=== PATIENT | male | born 1985 | race African-American/Black ===

== ENCOUNTER 2016-07-10 21:30 | Emergency (ER) | payer SELFPAY ==
[~2016-07-10] VITALS: Ht 170.2 cm; Wt 54.4 kg
[2016-07-10 22:47] VITALS: BP 136/94
[2016-07-10 23:32] LABS: Basophils # (auto) 0 uL; Basophils % (auto) 0.2 % (0.0-2.0); Eosinophils # (auto) 0.1 uL; Eosinophils % (auto) 1.6 % (0.0-7.0); Hematocrit 40.9 % (41.0-53.0); Hemoglobin 13.6 g/dL (13.5-17.5); Lymphocytes # (auto) 2.6 uL; Mean Corpuscular Hemoglobin 33.1 pg (28.0-32.0); Mean Corpuscular Hgb Conc. 33.2 g/dL (32.0-36.0); Mean Corpuscular Volume 99.6 fL (80.0-100.0); Monocytes # (auto) 0.8 uL; Monocytes % (auto) 10.1 % (0.0-12.0); Neutrophils # (auto) 4.4 uL; Neutrophils % (auto) 55.1 % (37.0-80.0); Platelet Count (auto) 481 10^3/uL (140-450); Red Cell Distribution Width 12.8 % (11.6-16.0); White Blood Cell 7.9 10^3/uL (4.4-10.8)
[2016-07-10 23:43] LABS: Albumin 3.6 g/dL (3.4-5.0); Anion Gap 10 (5-15); Blood Urea Nitrogen 9 mg/dL (7-18); Calcium 8.7 mg/dL (8.5-10.1); Carbon Dioxide 29 mmol/L (21-32); Chloride 103 mmol/L (98-107); Glucose 86 mg/dL (74-106); Potassium 3.6 mmol/L (3.5-5.1); Sodium 142 mmol/L (136-145)
[2016-07-10 23:45] LABS: Aspartate Aminotransferase 17 U/L (15-37); BUN/Creatinine Ratio 10.8; GFR African American 137 mL/min; GFR Non-African American 113 mL/min
[2016-07-10 23:50] LABS: Alkaline Phosphatase 67 U/L (45-117); Bilirubin, Total 0.3 mg/dL (0.2-1.0); Total Protein 7.7 g/dL (6.4-8.2)
== END 2016-07-11 00:55 | disposition left against medical advice (07) ==
LOC: ER 21:30
DX: R07.9 Chest pain, unspecified (principal); Z53.21 Procedure and treatment not carried out due to patient leaving prior to being seen by health care provider
CPT/HCPCS: 36415; 71010; 80053; 84484; 85025

== ENCOUNTER 2019-07-27 00:51 | Emergency (ER) | payer MEDICAID ==
[~2019-07-27] VITALS: Ht 170.2 cm; Wt 52.6 kg
[2019-07-27 01:30] VITALS: BP 127/87
== END 2019-07-27 03:34 | disposition left against medical advice (07) ==
LOC: ER 00:51
DX: S41.112A Laceration without foreign body of left upper arm, initial encounter (principal); Z53.21 Procedure and treatment not carried out due to patient leaving prior to being seen by health care provider; V49.9XXA Car occupant (driver) (passenger) injured in unspecified traffic accident, initial encounter; Y93.89 Activity, other specified; Y92.89 Other specified places as the place of occurrence of the external cause; Y99.8 Other external cause status

== ENCOUNTER 2023-07-05 13:07 | Emergency (ER) | payer MEDICAID ==
[~2023-07-05] VITALS: Ht 170.2 cm; Wt 51.8 kg
[2023-07-05 14:51] VITALS: BP 120/77; PULSE 63; RESP 16; TEMP 98.2; O2SAT 99
== END 2023-07-05 15:35 | disposition home or self-care (01) ==
LOC: ER 13:07
DX: S76.011A Strain of muscle, fascia and tendon of right hip, initial encounter (principal); S86.811A Strain of other muscle(s) and tendon(s) at lower leg level, right leg, initial encounter; Z88.8 Allergy status to other drugs, medicaments and biological substances; W18.39XA Other fall on same level, initial encounter; Y93.89 Activity, other specified; Y92.89 Other specified places as the place of occurrence of the external cause; Y99.8 Other external cause status
CPT/HCPCS: 73502; 73590

== ENCOUNTER 2023-07-27 12:20 | Emergency (ER) | payer MEDICAID ==
[~2023-07-27] VITALS: Ht 170.2 cm; Wt 52.7 kg
[2023-07-27 13:32] VITALS: BP 121/72; PULSE 74; RESP 17; TEMP 98.8; O2SAT 98
[2023-07-27] MEDS: methylPREDNISolone SOD SUCC 125 MG/2 ML VL IM ONE (14:24)
[2023-07-27] MEDS: KETOROLAC TROMETH 30 MG/ML 1ML VIAL IM ONE (14:24)
[2023-07-27] MEDS ORDERED: IBUP1TAB5 PO (15:05)
[2023-07-27] MEDS ORDERED: LIDO4PAD EX (15:05)
== END 2023-07-27 15:07 | disposition home or self-care (01) ==
LOC: ER 12:20
DX: S86.911A Strain of unspecified muscle(s) and tendon(s) at lower leg level, right leg, initial encounter (principal); M25.551 Pain in right hip; F12.10 Cannabis abuse, uncomplicated; Z88.5 Allergy status to narcotic agent; Z88.6 Allergy status to analgesic agent; W22.8XXA Striking against or struck by other objects, initial encounter; Y93.89 Activity, other specified; Y92.89 Other specified places as the place of occurrence of the external cause; Y99.8 Other external cause status
CPT/HCPCS: 73700; 93971; 96372; 99285; J1885; J2919

== ENCOUNTER 2024-09-15 12:20 | Emergency (ER) | payer MEDICAID ==
[~2024-09-15] VITALS: Ht 170.2 cm; Wt 120.0 kg
[~2024-09-15 12:20] MED LIST: IBUP1TAB5 PO; LIDO4PAD EX
--- NOTE | 2024-09-15 13:18 | ED.PDOC ---
Back pain HPI HPI Comments THIS IS A 39 YEAR OLD MALE PRESENTING TO THE ED WITH CHIEF COMPLAINT OF BACK PAIN. PATIENT REPORTS THAT HE HAS BEEN EXPERIENCING CHRONIC LOWER BACK AND NECK PAIN FOR THE PAST FEW MONTHS, BUT HAS WORSENED OVER THE PAST FEW DAYS. PATIENT RELAYS THAT HIS PAIN RADIATES DOWN HIS RIGHT HIP AND HIS LEFT ARM HAS ASSOCIATED TINGLING SENSATION. PT IS ABLE TO MOVE HIS NECK AND LOWER BACK WITH NORMAL ROM. PATIENT DENIES ANY CHEST PAIN, SOB, FALL, INJURY, OR SYNCOPE. NO FURTHER SYMPTOMS OR CONCERNS AT THIS TIME.PT TAKES NORCO FOR HIS NECK AND LOWER BACK PAIN. Chief Complaint: Back Pain Time Seen by MD: 13:16 Primary Care Provider: Dr. Piña Reviewed Notes: Nurses Notes, Medications, Allergies Allergies: Coded Allergies: Cyclobenzaprine (Verified Allergy, Unknown, 07/10/16) Tramadol (Verified Allergy, Unknown, 07/10/16) Home Meds Active Scripts Prednisone (Prednisone) 20 Mg Tab, 40 MG PO DAILY, #20 TAB Prov:BRENDA CRAIG 09/15/24 Lidocaine (Lidocaine Maximum Strengt) 4 % Pad, 4 % EX DAILY for 15 Days, #15 PAD Prov:SKIP WEBB NP 07/27/23 Ibuprofen Micronized (Ibuprofen) 600 Mg Tab, 600 MG PO Q6HPRN PRN for 5 Days, #20 TAB Prov:SKIP WEBB NP 07/27/23 Information Source: Patient Mode of Arrival: Ambulatory Timing: Months Duration: Since onset Location of Back pain: (B) Lower back, Other (LEFT UPPER EXTREMITY. ) Radiates to: Posterior: (R) Buttocks, (B) Foot, (R) Thigh Radiates to: Lateral: (R) Buttocks, (R) Thigh Severity: Moderate Prehospital treatment: None Quality: Aching Onset: Spontaneous History of: Chronic Back Pain Modifying Factors: Movement, Nothing Associated signs and symptoms: None Past Medical History PAST MEDICAL HISTORY: Depression Past Medical History (Other): CHRONIC NECK AND LOW BACK PAIN Surgical History: Denies all surgeries Family History Family History: Reviewed,noncontributory to illness Social History Smoker: Non-Smoker Alcohol: Occasionally Drugs: Marijuana Lives In: Home Constitutional: denies: chills, diaphoresis, fatigue, fever, malaise, sweats, weakness, others EENTM: denies: blurred vision, double vision, ear bleeding, ear discharge, ear drainage, ear pain, ear ringing, eye pain, eye redness, hearing loss, mouth pain, mouth swelling, nasal discharge, nose bleeding, nose congestion, nose pain, photophobia, tearing, throat pain, throat swelling, voice changes, others Respiratory: denies: cough, hemoptysis, orthopnea, SOB at rest, shortness of breath, SOB with excertion, stridor, wheezing, others Gastrointestinal: denies: abdomen distended, abdominal pain, blood streaked bowels, constipated, diarrhea, dysphagia, difficulty swallowing, hematemesis, melena, nausea, poor appetite, poor fluid intake, rectal bleeding, rectal pain, vomiting, others Genitourinary: denies: burning, dysuria, flank pain, frequency, hematuria, incontinence, penile discharge, penile sore, pain, testicle pain, testicle swelling, urgency, others Neurological: denies: dizziness, fainting, headache, left sided numbness, left sided weakness, numbness, paresthesia, pre-existing deficit, right sided numbness, right sided weakness, seizure, speech problems, tingling, tremors, weakness, others Musculoskeletal: reports: back pain, muscle pain, neck pain, others (RT HIP PAIN, LT SHOULDER KIT); denies: gout, joint pain, joint swelling, muscle stiffness Integumetry: denies: bruises, change in color, change in hair/nails, dryness, laceration, lesions, lumps, rash, wounds, others Hematologic/Lymphatic: denies: anemia, blood clots, easy bleeding, easy bruising, swollen glands, others Endocrine: denies: excessive hunger, excessive sweating, excessive thirst, excessive urination, flushing, intolerance to cold, intolerance to heat, unexplained weight gain, unexplained weight loss, others Psychiatric: denies: anxiety, bipolar disorder, depression, hopeless, panic disorder, schizophrenia, sleepless, suicidal, others All Other Systems: Reviewed and Negative Physical Exam General Appearance: No Apparent Distress, Normal HEENT: Normal ENT Inspection, PERRL/EOMI, Pharynx Normal, TMs Normal Neck: Full Range of Motion, Normal Inspection, Supple, Tender Lateral (MUSCLE SPASM ON POSTERIOR NECK, NO BONY TENDERNESS AND SWELLING. ) Respiratory: Chest Non-Tender, Lungs Clear, No Accessory Muscle Use, No Respiratory Distress, Normal Breath Sounds Cardiovascular: No Edema, No JVD, No Murmur, No Gallop, Normal Peripheral Pulses, Regular Rate/Rhythm Breast Exam: Deferred Gastrointestinal: No Organomegaly, Non Tender, No Pulsatile Mass, Normal Bowel Sounds, Soft Genitalia: Deferred Pelvic: Deferred Rectal: Deferred Extremities: No calf tenderness, Normal capillary refill, Normal inspection, Normal range of motion, Non-tender, No pedal edema Musculoskeletal : Location: Bilateral Extremity Location: Back Apperance: Tenderness (AND MUSCLE SPASM ON LOWER BACK, NO BONY TENDERNESS, SWELLING AND DEFORMITY. ) Neurologic: Alert, planting material remover II-XII nml as Tested, No Motor Deficits, Normal Affect, Normal Mood, No Sensory Deficits Cerebellar Function: Normal Reflexes: Normal Skin: Dry, Normal Color, Warm Peripheral Pulses: 2+ carotid (R), 2+ carotid (L) Lymphatic: No Adenopathy Was a procedure done? Was a procedure done?: No Back Pain Differential Dx Differential Diagnosis: Musculoskeletal Pain, Other (DDD OF NECK ND LOW BACK, CHRONIC PAIN EXACERBATION. ) X-Ray, Labs, Meds, VS Vital Signs Date Time Temp Pulse Resp B/P (MAP) Pulse Ox O2 Delivery O2 Flow Rate FiO2 09/15/24 12:22 98.3 77 16 130/90 97 98.3 Current Medications Medications (Trade) Dose Ordered Sig/Susanna Route Start Time Stop Time Status Last Admin Ketorolac Tromethamine (Toradol Injection) 60 mg ONCE ONCE IM 09/15/24 13:45 09/15/24 13:46 DC 09/15/24 14:11 [place] [address] Ph: [phone] DIAGNOSTIC IMAGING Diagnostic Imaging Report : [id number] Signed PATIENT: NIGEL MARTINACCT: [id number] UNIT: [id number] : 1985 LOC: ER ROOM / BED: / AGE / SEX: 39 / M ADM STATUS: REG ER SERVICE 1312 ORDERING PHYSICIAN: BRENDA CRAIG PROCEDURE(s): LUMB2 - LUMBAR SPINE 3 VIEW REASON: LOW BACK PAIN TO RIGHT LOW LEG ORDER NUMBER(s): [id number], ACCESSION NUMBER(s): [id number] XY LUMBAR SPINE 3 VIEW, HISTORY: LOW BACK PAIN TO RIGHT LOW LEG COMPARISON: None TECHNICAL DATA: Frontal and lateral views were obtained of the lumbar spine . FINDINGS: There are 5 lumbar type vertebral bodies. Lumbar curvature is within normal limits. Mild L5-S1 retrolisthesis. Vertebral body heights are maintained. Disk heights are narrowed. The facet joints appear degenerative. The sacroiliac joints are symmetric. Paraspinal soft tissues are within normal limits. IMPRESSION: Mild L5-S1 retrolisthesis. No acute fracture or dislocation of the lumbar spine. ATED BY: HEMA ANGEL MD DICTATED DATE/TIME: 09/15/24 135 SIGNED BY: HEMA ANGEL MD SIGNED DATE/TIME: 09/15/24 135 CC: [place] [address] Ph: [phone] DIAGNOSTIC IMAGING Diagnostic Imaging Report : [id number] Signed PATIENT: NIGEL MARTINACCT: [id number] UNIT: [id number] : 1985 LOC: ER ROOM / BED: / AGE / SEX: 39 / M ADM STATUS: REG ER SERVICE 1312 ORDERING PHYSICIAN: BRENDA CRAIG PROCEDURE(s): CERV2 - CERVICAL SPINE 3V REASON: NECK PAIN TO LEFT ARM ORDER NUMBER(s): [id number], ACCESSION NUMBER(s): [id number] INDICATION: NECK PAIN TO LEFT ARM TECHNIQUE: 3 views of the cervical spine were obtained. COMPARISON: None FINDINGS: The cervical spine is visualized from C1-C7. There is loss of the normal cervical lordosis which can be positional. No fractures or subluxations are identified. Alignment appears unremarkable. Prevertebral soft tissues are within normal limits. IMPRESSION: No acute fracture or subluxation ATED BY: LEO YAN MD DICTATED DATE/TIME: 09/15/24 135 SIGNED BY: LEO YAN MD SIGNED DATE/TIME: 09/15/24 135 CC: X-Ray, Labs, Meds, VS Comment EXTERNAL MEDICAL RECORDS REVIEWED: [NONE] INDEPENDENT HISTORIANS: [NONE] SOCIAL DETERMINANTS OF HEALTH: [NONE] LABS ORDERED: NONE REVIEWED AND INTERPRETED RESULTS: L-SPINE XR, C-SPINE XR, DEGENERATIVE CHANGES TO C5-C6. PENDING OFFICIAL RADIOLOGIST READING. IMAGING ORDERED: L-SPINE XR, C-SPINE XR: DDD TREATMENTS ORDERED: NONE PROCEDURES PERFORMED: NONE CRITICAL CARE TIME: NONE I HAVE DISCUSSED THE PATIENT WITH THE ATTENDING PHYSICIAN DR. LUNDBERG AND HE AGREES WITH THE PATIENT'S PLAN OF CARE AND DISPOSITION. BASED ON HISTORY OF PRESENT ILLNESS, AND PHYSICAL EXAM, PATIENT WILL BE DISCHARGED HOME. DISCUSSED PLAN FOR DISCHARGE HOME WITH RX PREDNISONE. MEDICATION WARNINGS GIVEN. SHARED DECISION MAKING: DISCUSSED WITH PATIENT THAT THEIR WORKUP WAS NORMAL. PATIENT INSTRUCTED TO FOLLOW UP WITH PRIMARY CARE PROVIDER IN 1-2 DAYS FOR RE- EVALUATION OF SYMPTOMS. PATIENT VERBALIZES UNDERSTANDING TO RETURN TO ED FOR NEW OR WORSENING SYMPTOMS OR IF FOLLOW UP WITH PCP CANNOT BE OBTAINED. PATIENT FEELS COMFORTABLE GOING HOME AT THIS TIME. ALL QUESTIONS ADDRESSED AT TIME OF DISCHARGE. Time of 1ST Reevaluation: 14:24 Reevaluation 1ST: Unchanged Patient Education/Counseling: Diagnosis, Treatment, Need For Follow Up Family Education/Counseling: Diagnosis, Treatment, No Family Present Medical Screening: No EMC Exist At This Time SEPSIS Sepsis Screen Date sepsis recognized/suspect: Sep 15, 2024 Time Sepsis recognized/suspect: 1223 Recent Procedure: No On Antibiotic Therapy: No Respiratory Rate >20: No Heart Rate >90: No Temp<36 C (96.8 F) or >38.3 C: No SBP <90 or MAP <65 mmHG: No New Acute Mental Status Change: No Is the patient on CPAP, BIPAP,: No Physician Orders Cervical Spine 3v (09/15/24 13:12) Lumbar Spine 3 View (09/15/24 13:12) Vital Signs Date Time Temp Pulse Resp B/P (MAP) Pulse Ox O2 Delivery O2 Flow Rate FiO2 09/15/24 12:22 98.3 77 16 130/90 97 98.3 Medications Medications Dose Ordered Sig/Susanna Route Start Time Stop Time Status Last Admin Dose Admin Ketorolac Tromethamine 60 mg ONCE ONCE IM 09/15/24 13:45 09/15/24 13:46 DC 09/15/24 14:11 Departure 1 Departure Time of Disposition: 14:24 Impression: Primary Impression: DDD (degenerative disc disease), cervical Additional Impressions: DDD (degenerative disc disease), lumbar Qualified Codes: M51.362 - Other intervertebral disc degeneration, lumbar region with discogenic back pain and lower extremity pain Radiculopathy Qualified Codes: M54.17 - Radiculopathy, lumbosacral region Disposition: 01 HOME / SELF CARE / HOMELESS Condition: Stable Additional Instructions: FOLLOW-UP WITH PCP IN 1 TO 2 DAYS. TAKE MEDICATIONS PRESCRIBED. RETURN TO ED FOR ANY NEW OR WORSENING SYMPTOMS. e-Prescriptions Prednisone (Prednisone) 20 Mg Tab 40 MG PO DAILY, #20 TAB Prov: BRENDA CRAIG 09/15/24 Discharged With: Self Critical Care Note Critical Care Time?: No Stability Stability form required: No Heart Score Heart Score: Heart Score Response (Comments) Value History N/A 0 EKG N/A 0 Age N/A 0 Risk Factors N/A 0 Troponin N/A 0 Total 0 I personally scribed for BRENDA CRAIG ([email or web address]) on 09/15/24 at 13:18. Electronically submitted by Jermaine Plunkett ([email or web address]). I personally scribed for BRENDA CRAIG ([email or web address]) on 09/15/24 at 13:19. Electronically submitted by Jermaine Plunkett ([email or web address]). I personally scribed for BRENDA CRAIG ([email or web address]) on 09/15/24 at 14:19. Electronically submitted by Jermaine Plunkett ([email or web address]). BRENDA CRAIG Sep 15, 2024 13:18
--- NOTE | 2024-09-15 13:56 | DVH ---
INDICATION: NECK PAIN TO LEFT ARM TECHNIQUE: 3 views of the cervical spine were obtained. COMPARISON: None FINDINGS: The cervical spine is visualized from C1-C7. There is loss of the normal cervical lordosis which can be positional. No fractures or subluxations are identified. Alignment appears unremarkable. Prevertebral soft tissues are within normal limits. IMPRESSION: No acute fracture or subluxation
--- NOTE | 2024-09-15 13:58 | DVH ---
XY LUMBAR SPINE 3 VIEW, HISTORY: LOW BACK PAIN TO RIGHT LOW LEG COMPARISON: None TECHNICAL DATA: Frontal and lateral views were obtained of the lumbar spine . FINDINGS: There are 5 lumbar type vertebral bodies. Lumbar curvature is within normal limits. Mild L5-S1 retrol isthesis. Vertebral body heights are maintained. Disk heights are narrowed. The facet joints appear d egenerative. The sacroiliac joints are symmetric. Paraspinal soft tissues are within normal limits. IMPRESSION: Mild L5-S1 retrolisthesis. No acute fracture or dislocation of the lumbar spine.
[2024-09-15] MEDS: KETOROLAC TROMETH 60MG/2ML VIAL IM ONE (14:11)
[2024-09-15] MEDS ORDERED: PRED20TA2 PO (14:20)
[2024-09-15 14:28] VITALS: BP 133/95; PULSE 76; RESP 18; TEMP 98.4; O2SAT 98
== END 2024-09-15 14:31 | disposition home or self-care (01) ==
LOC: ER 12:20
DX: M50.30 Other cervical disc degeneration, unspecified cervical region (principal); M51.369 Other intervertebral disc degeneration, lumbar region without mention of lumbar back pain or lower extremity pain; M54.17 Radiculopathy, lumbosacral region; F32.A Depression, unspecified; Z79.899 Other long term (current) drug therapy; Z98.890 Other specified postprocedural states; Z88.5 Allergy status to narcotic agent
CPT/HCPCS: 72040; 72100; 96372; 99284; J1885